=== PATIENT | female | born 1990 | race Two or more races ===

== ENCOUNTER 2025-01-25 13:21 | Observation (INO) | payer OTHER ==
--- NOTE | 2025-01-25 14:43 | DVH ---
BIOPHYSICAL PROFILE HISTORY: AMA TECHNIQUE: Multiple transabdominal real-time grayscale sonographic images through the gravid uterus of the fetus with duplex Doppler color flow and M-mode spectral analysis FINDINGS: BIOPHYSICAL PROFILE: breathing score: 2 movement score: 2 tone score: 2 Quantitative KRISTY score: 2 (KRISTY: 13.9 Cm.) Total score: 8 The cervix was not seen Single live fetus in cephalic presentation. heart rate 136 beats per minute. Grade II anterior placenta without previa or abruption IMPRESSION: Biophysical profile score: 8/8
--- NOTE | 2025-01-25 17:27 | DVHDS2 ---
Physician Discharge Progress N Final Diagnosis: AMA 38WKS Operations or Procedures: Operations or Procedures NST REACTIVE REVIWED,SONO Condition on Discharge: Good Disposition: Home Discharge Instructions: Diet: Regular Activity: No Restrictions, As Tolerated Medications: NA Follow Up Care: Specialist: 1W Discharge Statement: "Patient was advised to return to the ER or call 911 if any headaches, dizziness, shortness of breath, chest pain, abdominal pain, bleeding, fevers, or worsening of medical condition. Patient was counseled about treatment plan, medications, possible side effects, patientverbalized understanding. All questions were answered to the best of my ability. This discharge took greater then 30 minutes in planning, reviewing documentat ion, counseling the patient, and discussing with other team members." Visit Coding OBGYN Date of Service: Jan 25, 2025 Billing Provider: NATIVIDAD JACOBSEN DO FIELD SALES EXECUTIVE Common Visit Codes: [id number] INP/OBS CARE (HIGH) FIELD SALES EXECUTIVE Procedure Codes: 52295-17- NON-STRESS TEST NATIVIDAD JACOBSEN DO Jan 25, 2025 17:27
== END 2025-01-25 15:20 | disposition home or self-care (01) ==
LOC: NUR 13:21 → UNDOADMOB 13:21 → NUR 13:30 → LDRP 13:30
PROVIDERS: ADMIT Obstetrics & Gynecology; ATTEND Obstetrics & Gynecology
DX: O26.893 Other specified pregnancy related conditions, third trimester (principal); R51.9 Headache, unspecified; R11.0 Nausea; O09.523 Supervision of elderly multigravida, third trimester; Z3A.38 38 weeks gestation of pregnancy
CPT/HCPCS: 76818; 81002; 94760; G0378; 59025; 76819

== ENCOUNTER 2025-02-01 07:58 | Observation (INO) | payer OTHER ==
[2025-02-01] MEDS ORDERED: PREN-96 PO (08:10)
--- NOTE | 2025-02-01 08:44 | DVH ---
CLINICAL HISTORY: Advanced maternal age. COMPARISON: US BIOPHYSICAL PROFILE on DOS: 01/25/25 TECHNIQUE: biophysical profile was performed. Transabdominal sonographic images of the fetus we re obtained. FINDINGS: The fetus is in cephalic position. heart rate measures 135 BPM. Amniotic fluid index measures 13.4 cm. The placenta is anterior in position without visualized evidence of previa or abrup tion. BPP profile is an overall score of 8/8, with 2/2 points for breathing, with at least one episode of breathing over a 30 second duration during a 30 minute observation, 2/2 points for m ovements, with 3 or more discrete body or limb movements, 2/2 points for tone, with one or more episodes of extremity extension with return to flexion, or opening and closing of hand, and 2/ 2 points for amniotic fluid, with at least 1 pocket of amniotic fluid that measures 2 cm in 2 perpend icular planes. IMPRESSION: BPP score of 8/8.
--- NOTE | 2025-02-01 12:43 | DVHDS2 ---
Physician Discharge Progress N Final Diagnosis: Term , Advanced maternal age Secondary Diagnosis: Encounter for surveillance Operations or Procedures: Operations or Procedures NST/BPP KRISTY all WNL Condition on Discharge: Stable Disposition: Home Discharge Instructions: Diet: Regular Activity: No Restrictions, As Tolerated Follow Up/Referral: Follow up in 1 week Medications: N/A Follow Up Care: Discharge Statement: "Patient was advised to return to the ER or call 911 if any headaches, dizziness, shortness of breath, chest pain, abdominal pain, bleeding, fevers, or worsening of medical condition. Patient was counseled about treatment plan, medications, possible side effects, patientverbalized understanding. All questions were answered to the best of my ability. This discharge took greater then 30 minutes in planning, reviewing documenta tion, counseling the patient, and discussing with other team members." Visit Coding OBGYN Date of Service: Feb 01, 2025 Billing Provider: BALDEMAR JOYCE DO CLINICAL DATA MANAGEMENT MANAGER Common Visit Codes: [id number]-PJZ/[id number] SAME DATE (MOD) CLINICAL DATA MANAGEMENT MANAGER Procedure Codes: 46785-74- NON-STRESS TEST BALDEMAR JOYCE DO Feb 01, 2025 12:43
== END 2025-02-01 09:40 | disposition home or self-care (01) ==
LOC: LDRP 07:58
PROVIDERS: ADMIT Obstetrics & Gynecology; ATTEND Obstetrics & Gynecology
DX: O47.03 False labor before 37 completed weeks of gestation, third trimester (principal); Z3A.39 39 weeks gestation of pregnancy; Z98.890 Other specified postprocedural states
CPT/HCPCS: 76818; 81002; 94760; G0378; 59025; 76819

== ENCOUNTER 2025-02-06 20:01 | Inpatient (IN) | payer OTHER ==
[~2025-02-06] VITALS: Ht 162.6 cm; Wt 65.8 kg
[~2025-02-06 20:01] MED LIST: PREN-96 PO
[2025-02-06] MEDS ORDERED: LIDOCAINE 2%HCL (LOCAL ANESTH.) INJ 20ML MDV IJ PRN (20:15)
[2025-02-06 21:22] LABS: Hematocrit 38.2 % (36.0-46.0); Hemoglobin 13.3 g/dL (12.2-16.2); Mean Corpuscular Hemoglobin 32.2 pg (28.0-32.0); Mean Corpuscular Volume 92.9 fL (80.0-100.0); Nucleated Red Blood Cells % 0.0 %
[2025-02-06 21:37] LABS: INR 0.97 (0.9-1.15); Partial Thromboplastin Time 29.6 SEC (24.5-34.5); Prothrombin Time 10.3 sec (9.3-11.8)
[2025-02-06 21:39] LABS: Alanine Aminotransferase 13 U/L (7-40); Albumin 3.9 g/dL (3.2-4.8); Anion Gap 12 (5-15); BUN/Creatinine Ratio 9.9 (10.0-20.0); Bilirubin, Total 0.5 mg/dL (0.2-1.0); Calcium 9.5 mg/dL (8.7-10.4); Carbon Dioxide 22 mmol/L (20-31); Chloride 106 mmol/L (98-107); Glucose 92 mg/dL (74-106); Potassium 3.7 mmol/L (3.5-5.1); Sodium 140 mmol/L (136-145); Total Protein 6.5 g/dL (5.7-8.2)
[2025-02-06 21:41] LABS: Alkaline Phosphatase 146 U/L (46-116); Blood Urea Nitrogen 7 mg/dL (9-23)
--- NOTE | 2025-02-06 21:56 | DVHHP2 ---
OB CC & HPI Date Date of Admission: Feb 06, 2025 Patient Identification: : 1 Para: 0 EDC: Feb 05, 2025 EGA: 40.1wk Chief Complaints: Reason for admission: induction of labor Indication for induction: post dates, other (AMA) Admission Nurse Assessment Rev: No History of Present Complaints 35yo IUP@40.1wks presents to OB unit for scheduled IOL, wants epidural when needed. Denies UCs/LOF/VB/ROCA/vision changes/RUQ pain. Endorses +FM. PNC: Routine PNC at [facility] OB office with Dr. Chris, seen more than x10 visits, PNC uncomplicated OB hx: uncomplicated Past Medical History Cardiac: No pertinent Hx Pulmonary: No pertinent Hx Central Nervous System: No pertinent Hx GI: No pertinent Hx Hemotology/Oncology: No pertinent Hx Hepatobiliary: No pertinent Hx Psychiatric: No pertinent Hx Musculoskeletal: No pertinent Hx Rheumotologic: No pertinent Hx Infectious Disease: No peritnent Hx ENT: No pertinent Hx Renal/: No pertinent Hx Endocrine: No pertinent Hx Dermatology: No pertinent Hx Past Surgical History: No pertinent Hx OB History OB History Care: Good Care Ultrasounds: Normal mid trimester US Obstetrical Complications: None Medical Complications: None Allergies: Coded Allergies: NO KNOWN ALLERGIES (Unverified , 02/06/25) Home Meds Reported Medications Vit W/ Ferrous Fumara ( One Daily) Daily Tab, 1 TAB PO DAILY, #90 TAB 3 Refills 02/01/25 Current Medications Current Medications Medications (Trade) Dose Ordered Sig/Luis Angel Route PRN Reason Start Time Stop Time Status Last Admin Lactated Ringer's 1,000 ml @ 125 mls/hr Q8H IV 02/06/25 20:15 Nalbuphine HCl (Nubain) 10 mg Q4HP PRN IV MODERATE PAIN (4-6 PAIN SCALE) 02/06/25 20:15 Witch Mamta (Tucks) 1 pad PRN PRN TOP PERINEAL AREA DISCOMFORT 02/06/25 20:15 Sodium Lauryl Sulfate (Phisoderm) 240 ml PRN PRN TOP PERINEAL AREA DISCOMFORT 02/06/25 20:15 Benzocaine (Dermoplast) 1 applic PRN PRN TOP PERINEAL AREA DISCOMFORT 02/06/25 20:15 Misoprostol (Cytotec) 50 mcg Q4HPRN PRN PO CERVICAL RIPENING 02/06/25 20:15 Lidocaine HCl (Xylocaine) 20 ml ONCE PRN IJ PERINEAL AREA DISCOMFORT 02/06/25 20:15 Family & Social History Family/Social History Past Family/Social History: denies Blood Type: O+ Rubella: immune RPR/VDRL: Negative GBS Status: Negative HBsAG: Negative Review of Systems Constitutional: No symptom reported Ears, Nose, & Throat: No symptom reported Eyes: No symptom reported Pulmonary/Respiratory: No symptom reported Cardiovascular: No symptom reported Gastrointestinal: No symptom reported Genitourinary: No symptom reported Musculoskeletal: No symptom reported Skin: No symptom reported Psychiatric: No symptom reported Endocrine: No symptom reported Hemotologic/Lymphatic: No symptom reported OB Admission Exam Physical Exam Vitals: VSS, see CPN HEENT: TMs Normal, Fontanelles Normal, Nasal Mucosa Normal, Eyes non-injected, Oropharynx Normal, PERRLA, Moist Membranes, EOMI Heart: Rhythm Normal Lungs: Clear Abdomen: Gravid Extremities: Normal Reflexes: Normal Cervical Dilatation: 1cm Effacement: 50% Station: -2 Membranes: Intact Heart Rate: 130's Accelerations: No Accelerations Decelerations: No Decelerations Short Term Variability: Present Fpc Variability: Average (6-25) Contractions on Admission: < 5 Minutes Apart Date/Time Contractions Began: 02/06/25, pt does not feel UC Frequency of Contractions: 3/10 Duration: 70 Intensity: Mild OB Plan Plan Admitting Diagnosis: 35yo IUP@40.1wks Induction of Labor for AMA Category I EFM Intact Membranes GBS negative Plan: Expectant Management Induction Methd: Misoprostol protocol (when UC spaces out) Other Plan: P: Admit to L&D Informed consent obtained Discussed risks, benefits, alternatives of IOL with cytotec PO and campbell balloon. If UCs permit, pt agrees to cytotec PO. If not then campbell balloon is okay. monitoring per order Routine labs ordered Pain mgmt PRN Frequent position changes in and out of bed encouraged Limit SVE unless necessary Intrauterine resuscitation PRN Anticipate CNM will consult with Dr Chris PRN Visit Coding OBGYN Date of Service: Feb 06, 2025 Billing Provider: DEEPTHI SCOTT CNM STRUCTURAL METAL WORKER Common Visit Codes: [id number] INP/OBS CARE (MOD) STRUCTURAL METAL WORKER Procedure Codes: 70184-26- NON-STRESS TEST CAITIE PINO Feb 06, 2025 21:56
[2025-02-06 22:46] LABS: Amphetamine Screen, Urine Neg (NEGATIVE); Barbiturate Scree,Urine Neg (NEGATIVE); Benzodiazephine Screen, Urine Neg (NEGATIVE); Cannabinoid Screen, Urine Neg (NEGATIVE); Cocaine Screen, Urine Neg (NEGATIVE); Opiate Scree,Urine Neg (NEGATIVE); Phencyclidine Screen, Urine Neg (NEGATIVE)
[2025-02-06] MEDS: LACTATED RINGER'S 1,000 ML IV SCH (23:28)
--- NOTE | 2025-02-06 23:43 | DVHPN2 ---
OB Labor Progress Note Date and Time Seen Date Seen: Feb 06, 2025 Time Seen: 22:38 Subjective Patient reports: Feels worse (pain is intensified) Subjective Comment 35 yo @ 40.1wk. Denies any new sx, plans to get epidural when necessary Objective Vital Signs VSS see CPN Monitoring Method Monitoring Method: External Heart Rate Heart Rate Baseline: 130 Heart Rate Variability: Moderate Presence of FHR Accelerations: Yes Presence of FHR Decelerations: No Changes in Trends of Patterns: No Are all 5 Components of the FH: No Contractions Contractions Frequency: Occasional (2-3/10) Duration of Contraction: 70 Contractions Intensity: Mild Contractions Resting Tone: Relaxed Membranes Membranes: Intact Vaginal Exam Vag Exam Deferred: No Vaginal Exam Dilation: 2 Vaginal Exam Effacement: 50 Vaginal Exam Station: -2 Vaginal Exam Presentation: VTX Vaginal Exam Show: Small (bloody show) Medications Medications - Pitocin: No Medications - Pain Medications: PRN Medication - Epidural: No Lab Results Lab Results Current Medications Medications (Trade) Dose Ordered Sig/Luis Angel Start Time Stop Time Status Last Admin Dose Admin Lactated Ringer's 1,000 ml @ 125 mls/hr Q8H 02/06/25 20:15 Nalbuphine HCl (Nubain) 10 mg Q4HP PRN 02/06/25 20:15 Witch Mamta (Tucks) 1 pad PRN PRN 02/06/25 20:15 Sodium Lauryl Sulfate (Phisoderm) 240 ml PRN PRN 02/06/25 20:15 Benzocaine (Dermoplast) 1 applic PRN PRN 02/06/25 20:15 Misoprostol (Cytotec) 50 mcg Q4HPRN PRN 02/06/25 20:15 Lidocaine HCl (Xylocaine) 20 ml ONCE PRN 02/06/25 20:15 Laboratory Tests Test 02/06/25 22:09 02/06/25 20:49 02/06/25 20:12 Range/Units Urine Opiates Screen Neg NEGATIVE Urine Fentanyl Screen Neg NEGATIVE Urine Barbiturates Screen Neg NEGATIVE Urine Phencyclidine Screen Neg NEGATIVE Urine Amphetamines Screen Neg NEGATIVE Urine Benzodiazepines Screen Neg NEGATIVE Urine Cocaine Screen Neg NEGATIVE Urine Cannabinoids Screen Neg NEGATIVE Prothrombin Time 10.3 9.3-11.8 sec Prothrombin Time INR 0.97 0.9-1.15 Activated Partial Thromboplast Time 29.6 24.5-34.5 SEC Sodium Level 140 136-145 mmol/L Potassium Level 3.7 3.5-5.1 mmol/L Chloride Level 106 98-107 mmol/L Carbon Dioxide Level 22 20-31 mmol/L Anion Gap 12 5-15 Blood Urea Nitrogen 7 L 9-23 mg/dL Creatinine 0.71 0.550-1.02 mg/dL Glomerular Filtration Rate Calc 113 >90 mL/min BUN/Creatinine Ratio 9.9 L 10.0-20.0 Serum Glucose 92 74-106 mg/dL Calcium Level 9.5 8.7-10.4 mg/dL Total Bilirubin 0.5 0.2-1.0 mg/dL Aspartate Amino Transferase (AST) 20 13-40 U/L Alanine Aminotransferase (ALT) 13 7-40 U/L Alkaline Phosphatase 146 H 46-116 U/L Total Protein 6.5 5.7-8.2 g/dL Albumin 3.9 3.2-4.8 g/dL Treponema pallidum Antibody Non-reactive Negative Hepatitis C Antibody Negative Negative White Blood Count 7.0 4.4-10.8 10^3/uL Red Blood Count 4.12 4.0-5.20 10^6/uL Hemoglobin 13.3 12.2-16.2 g/dL Hematocrit 38.2 36.0-46.0 % Mean Corpuscular Volume 92.9 80.0-100.0 fL Mean Corpuscular Hemoglobin 32.2 H 28.0-32.0 pg Mean Corpuscular Hemoglobin Concent 34.7 32.0-36.0 g/dL Red Cell Distribution Width 13.4 11.8-14.3 % Platelet Count 198 140-450 10^3/uL Mean Platelet Volume 8.0 6.9-10.8 fL Neutrophils (%) (Auto) 66.6 37.0-80.0 % Lymphocytes (%) (Auto) 21.7 10.0-50.0 % Monocytes (%) (Auto) 10.7 0.0-12.0 % Eosinophils (%) (Auto) 0.7 0.0-7.0 % Basophils (%) (Auto) 0.3 0.0-2.0 % Neutrophils # (Auto) 4.6 1.6-8.6 10 ^3/uL Lymphocytes # (Auto) 1.5 0.4-5.4 10 ^3/uL Monocytes # (Auto) 0.7 0-1.3 10 ^3/uL Eosinophils # (Auto) 0 0-0.8 10 ^3/uL Basophils # (Auto) 0 0-0.2 10 ^3/uL Nucleated Red Blood Cells 0.0 % Assessment Assessment A: 35yo IUP@40.1wks Induction of Labor for AMA and post dates Category I EFM Intact Membranes GBS negative Plan Plan P: Cooks balloon placed with only uterine portion inflated with 60 ml monitoring per order Pain mgmt PRN Frequent position changes in and out of bed encouraged Limit SVE unless necessary Intrauterine resuscitation PRN Anticipate Plan discussed with: Patient, Spouse Visit Coding OBGYN Date of Service: Feb 06, 2025 Billing Provider: DEEPTHI SCOTT CNM CAUSTIC STRENGTH INSPECTOR Common Visit Codes: [id number] INP/OBS CARE(MOD) CAITIE PINO Feb 06, 2025 23:43
[2025-02-07] MEDS: NALBUPHINE HCL 10 MG/1ml INJECTION IV PRN (04:17)
[2025-02-07] MEDS: ACETAMINOPHEN 500 MG TAB or CAP PO ONE (04:45)
[2025-02-07] MEDS: PHISODERM TOP SOLN 240ML BTL TOP PRN (05:43)
[2025-02-07] MEDS: DERMOPLAST 60ML BOTTLE TOP PRN (05:43)
[2025-02-07] MEDS: WITCH HAZEL-GLYCERIN PAD TOP PRN (05:44)
[2025-02-07] MEDS: D5W/LACTATED RINGERS 1,000 ML IV SCH (05:48)
[2025-02-07] MEDS: fentaNYL CITRATE 100 MCG/2 ML VL ONE (07:01)
--- NOTE | 2025-02-07 07:12 | DVHPN2 ---
Chief Complaints Patient reports: No new complaints, Feels worse (pain is intensified) Nursing reports: No new complaints Objective Vitals Vital Signs Date Time Temp Pulse Resp B/P (MAP) Pulse Ox O2 Delivery O2 Flow Rate FiO2 02/07/25 05:44 69 16 108/71 Medications Current Medications Medications (Trade) Dose Ordered Sig/Luis Angel Route PRN Reason Start Time Stop Time Status Last Admin Benzocaine (Dermoplast) 1 applic PRN PRN TOP PERINEAL AREA DISCOMFORT 02/06/25 20:15 02/07/25 05:43 Dextrose/Lactated Ringer's 1,000 ml @ 125 mls/hr Q8H IV 02/07/25 04:00 02/07/25 05:48 Lidocaine HCl (Xylocaine) 20 ml ONCE PRN IJ PERINEAL AREA DISCOMFORT 02/06/25 20:15 Nalbuphine HCl (Nubain) 10 mg Q4HP PRN IV MODERATE PAIN (4-6 PAIN SCALE) 02/06/25 20:15 02/07/25 04:17 Oxytocin 1,000 ml @ 6 ml/hr Q24H IV 02/07/25 07:30 Sodium Lauryl Sulfate (Phisoderm) 240 ml PRN PRN TOP PERINEAL AREA DISCOMFORT 02/06/25 20:15 02/07/25 05:43 Witch Mamta (Tucks) 1 pad PRN PRN TOP PERINEAL AREA DISCOMFORT 02/06/25 20:15 02/07/25 05:44 Others ve-4.5cm/60/-2 Studies Laboratory Tests 02/06/25 20:49 02/06/25 20:12 Test 02/06/25 20:49 Range/Units Serum Glucose 92 74-106 mg/dL Ass/Plan Assessment term preg in labor Plan start pitocin Visit Coding OBGYN Date of Service: Feb 07, 2025 Billing Provider: NATIVIDAD JACOBSEN DO LOGGING WORKER Common Visit Codes: [id number] INP/OBS CARE(MOD) LOGGING WORKER Procedure Codes: 24295-22- NON-STRESS TEST NATIVIDAD JACOBSEN DO Feb 07, 2025 07:12
[2025-02-07] MEDS: LACTATED RINGER'S 1,000 ML IV ONE (07:15)
[2025-02-07] MEDS: LACT. RINGERS/OXYTOCIN 20UNITS 1,000 ML IV SCH (08:29)
[2025-02-07] MEDS: ROPIVACAINE HCL 100 ML ONE ×2 (12:29→12:31)
--- NOTE | 2025-02-07 14:04 | EPIDURAL ---
Anesthesia Procedural Note - Epidural Informed consent obtained?: Yes Medication Administered: Fentanyl 100 mcg Spinal level of insertion: L3-L4 Test dose of lidocaine & Epine: Negative Infusion started: Yes Start time: 06:55 End time: 07:35 Procedure description Procedure description: Called for labor analgesia. Patient is , requesting labor epidural prior to pitocin augmentation. Chart reviewed, patient examined, history taken. Informed consent for CSE obtained. Sitting position, sterile prep and drape. Epidural needle placed at L5-S1 with JEEVAN at 4cm. 25G spinal needle +clear CSF. Epidural catheter placed, + persistent heme despite flushing with positive test dose (HR from 90 to 120) Catheter removed. Another attempt at L4-5 attempted, +heme again in the catheter, removed. Epidural needle placed at L3-4 with JEEVAN at 4cm. Epidural catheter secured at 10cm. Aspiration and test dose (3cc 1.5% lido with epi) negative (HR stable at 80). 85mcg fentanyl via epidural. Patient reports good pain relief. 0.2% ropivacaine infusion started. Will follow as needed. CAMILLA RICKETTS MD Feb 07, 2025 14:04
--- NOTE | 2025-02-07 17:23 | LDN2 ---
Labor and Delivery Note Date 02/07/25 Age 35 1 Para 1 EDC 9-23 EGA 40wks Diagnosis iol ,ama Vaginal Delivery: VTX Vacuum Assisted: No Placenta: Spontaneous Sex: Male Apgars 7-8 Nuchal Cord Transected: No Anesthesia epidural Episiotomy: No Extension: Yes (1st dge vag lac) Repaired with 2-0 chromic EBL 300ml Labs Blood Bank 02/06/25 20:49: Blood Type O POSITIVE Complications none Conditions stable Comments/Significant Med Elvin spec exam no cxal lac Visit Coding OBGYN Date of Service: Feb 07, 2025 Billing Provider: NATIVIDAD JACOBSEN DO RN CLINICAL DOCUMENTATION SPECIALIST Common Visit Codes: [id number] OBS CARE (HIGH) RN CLINICAL DOCUMENTATION SPECIALIST Procedure Codes: 21585-WAP DELIVERY ONLY NATIVIDAD JACOBSEN DO Feb 07, 2025 17:23
[2025-02-07] MEDS: LACT. RINGERS/OXYTOCIN 20UNITS 500 ML IV ONE ×2 (17:48→17:49)
[2025-02-07] MEDS: NALOXONE HCL 0.4 MG/ML VIAL IV ONE (19:00)
[2025-02-07] MEDS: ACETAMINOPHEN 325 MG TAB PO PRN (21:21)
[2025-02-07] MEDS: DOCUSATE SOD 100 MG CAP PO SCH (22:00)
[2025-02-07 23:23] VITALS: BP 109/70; PULSE 84; RESP 17; TEMP 97.7; O2SAT 97
[2025-02-07] MEDS: fentaNYL CITRATE 100 MCG/2 ML VL IV ONE (23:54)
[2025-02-08 03:30] VITALS: BP 110/68; PULSE 82; RESP 17; TEMP 98; O2SAT 98
[2025-02-08 06:52] VITALS: BP 108/72; PULSE 88; RESP 15; TEMP 97.9; O2SAT 98
[2025-02-08] MEDS: IBUPROFEN 600 MG TAB PO PRN (06:54)
--- NOTE | 2025-02-08 07:12 | DVHPN2 ---
Progress Note Date Seen: Feb 08, 2025 Subjective Pattie is sitting up in bed holding baby SUBJECTIVE -Lochia minimal -Tolerating regular diet well. -Pain relieved with oral medication PRN -Ambulating and voiding well w/o feeling lightheaded or dizzy. -Passing flatus but no BM yet -Breast feeding. -Desires and requests to be discharged home today (02/08) vital signs Vital Sign Date Time Temp Pulse Resp B/P (MAP) Pulse Ox O2 Delivery O2 Flow Rate FiO2 02/08/25 06:57 Room Air 02/08/25 06:52 97.9 88 15 108/72 (84) 98 97.9 Total Intake and Output 02/07/25 02/07/25 02/08/25 15:00 23:00 07:00 Output Total 1200 ml 500 ml Balance -1200 ml -500 ml medications Current Medications Medications Dose Ordered Sig/Luis Angel Route Start Time Stop Time Status Last Admin Dose Admin Witch Mamta 1 pad PRN PRN TOP 02/06/25 20:15 02/07/25 05:44 1 PAD Sodium Lauryl Sulfate 240 ml PRN PRN TOP 02/06/25 20:15 02/07/25 05:43 240 ML Benzocaine 1 applic PRN PRN TOP 02/06/25 20:15 02/07/25 05:43 1 APPLIC Ibuprofen 600 mg Q6HP PRN PO 02/07/25 21:15 02/08/25 06:54 600 MG Acetaminophen 650 mg Q4HP PRN PO 02/07/25 21:15 02/07/25 21:21 650 MG Docusate Sodium 200 mg HS PO 02/07/25 22:00 laboratory and microbiology Laboratory Tests 02/06/25 20:49 02/06/25 20:12 Test 02/06/25 20:49 Range/Units Serum Glucose 92 74-106 mg/dL Objective OBJECTIVE -A&O x4. No apparent distress. Affect appropriate -Afebrile, VSS -Chest: heart and lung sounds normal. -Breasts: Nipples intact w/o cracks or soreness -Abdomen: normal BS, soft, non-tender, no rebound or guarding, fundus firm @ U- 1, lochia minimal -Perineum:- no edema, or erythema, Incision site with sutures intact, edges in good approximation. -Extremities: no edema or tenderness Problems(with codes): (1) Normal spontaneous vaginal delivery (2) First degree perineal laceration (3) Precipitous drop in hematocrit Assessment/Plan ASSESSMENT -35 yo now ppd #1 s/p doing well. -Blood Type: O+ -Breast feeding -Rubella Immune PLAN -Continue pain management with oral medications as previously ordered -Increase fluid intake and fiber in diet to promote regular bowel movements, Laxative PRN -Encouraged patient to continue taking vitamin and iron -Educated patient on self care and warning signs of PPH, PPD, and pre-eclampsia. Answered all pt questions and concerns -Continue routine care and anticipate discharge this evening Plan discussed with: Patient, Spouse Visit Coding OBGYN Date of Service: Feb 08, 2025 Billing Provider: SARI NUGENT CNM BILLET WORKER Common Visit Codes: [id number] INP/OBS CARE(HIGH) SARI NUGENT CNM Feb 08, 2025 07:12
--- NOTE | 2025-02-08 07:14 | DVHDS2 ---
Obstetrics Discharge Summary Obstetrics Discharge Summary Date of Admission: Feb 06, 2025 Date of Discharge: Feb 08, 2025 Reason For Admission: Induction of Labor Intrapartum Procedures: Spontaneous vaginal deliv Operative Complicat: Laceration (first degree Perineal) Discharge Diagnosis: Term -Delivered Discharge Information: Activity (Unrestricted. Advance as tolerated. Balance activities with rest periods. No heavy lifting, pushing or straining. Pelvic rest x 6 weeks), Diet (Routine regular diet rich in fiber, protein, iron and vitamin C with adequate fluid intake.), Medications (Ibuprofen 600mg every 6 hours as needed for pain. Colace 100mg twice a day as needed to keep bowel movements soft and prevent constipation. Continue Vitamin and iron), Instructions (Routine), Discharge to (Home), Accompanied by (partner), Discarge date (02/08/25) Discharge Care Plan Instructions - self care instructions given - emergency signs and symptoms including but not limited to pre-eclampsia precautions and signs of infection, PPH & of PPD reviewed with patient. -Follow up with OB Provider in 2 weeks and again at 6 weeks Visit Coding OBGYN Date of Service: Feb 08, 2025 Billing Provider: SARI NUGENT CNM CHIEF OF HOSPITAL MEDICINE Common Visit Codes: 36081-FAX/OBS DISCH DAY >30MIN SARI NUGENT CNM Feb 08, 2025 07:14
[2025-02-08] MEDS ORDERED: DOCU-94 PO (07:15)
[2025-02-08] MEDS ORDERED: IBU600T PO (07:15)
[2025-02-08 15:00] VITALS: BP 122/88; PULSE 70; RESP 18; TEMP 98; O2SAT 98
== END 2025-02-08 18:05 | disposition home or self-care (01) | DRG 806 ==
LOC: LDRP 20:01
PROVIDERS: ADMIT Obstetrics & Gynecology; ATTEND Obstetrics & Gynecology
PROC: 0U7C7DJ Dilation of Cervix with Intraluminal Device, Temporary, Via Natural or Artificial Opening (ICD-10-PCS; 2025-02-06)
PROC: 10E0XZZ Delivery of Products of Conception, External Approach (ICD-10-PCS; principal; 2025-02-07)
PROC: 0HQ9XZZ Repair Perineum Skin, External Approach (ICD-10-PCS; 2025-02-07)
PROC: 3E033VJ Introduction of Other Hormone into Peripheral Vein, Percutaneous Approach (ICD-10-PCS; 2025-02-07)
PROC: 3E0R3BZ Introduction of Anesthetic Agent into Spinal Canal, Percutaneous Approach (ICD-10-PCS; 2025-02-07)
PROC: 00HU33Z Insertion of Infusion Device into Spinal Canal, Percutaneous Approach (ICD-10-PCS; 2025-02-07)
DX: O48.0 Post-term pregnancy (principal); R71.0 Precipitous drop in hematocrit; Z37.0 Single live birth; Z3A.40 40 weeks gestation of pregnancy; O70.0 First degree perineal laceration during delivery
CPT/HCPCS: 36415; 59025; 59200; 59409; 62282; 80053; 80307; 81002; 85025; 85610; 85730; 86780; 86803; 86850; 86900; 86901; 94760; 94762; 96360; 96361; 96365; 96366; 96374; A4344; G0378; J2590